=== PATIENT | male | born 1970 | race Caucasian/White ===

== ENCOUNTER 2017-03-20 06:05 | Day surgery (SDC) | payer OTHER ==
[2017-03-20] MEDS ORDERED: ceFAZolin 2 GM/50 ML 2 GM/50 ML BAG IV ONE (06:38)
[2017-03-20] MEDS ORDERED: ACETAMINOPHEN 1,000 MG/100 ML 100 ML IV ONE (06:38)
[2017-03-20] MEDS ORDERED: LACTATED RINGERS 1,000 ML IV ONE ×2 (06:46→10:52)
[2017-03-20] MEDS ORDERED: BACITRACIN 50,000 UNIT VIAL IM ONE (08:29)
[2017-03-20] MEDS ORDERED: EPINEPHrine 1 MG/ML AMP IVP ONE (08:30)
[2017-03-20] MEDS ORDERED: ONDANSETRON 4 MG/2 ML VIAL IVP ONE (08:40)
[2017-03-20] MEDS ORDERED: PROPOFOL 200 MG/20 ML VIAL IVP ONE (08:40)
[2017-03-20] MEDS ORDERED: ceFAZolin 1 GM VIAL IV ONE (08:40)
[2017-03-20] MEDS ORDERED: DEXAMETHASONE 4 MG/ML VIAL IVP ONE (08:40)
[2017-03-20] MEDS ORDERED: MIDAZOLAM 2 MG/2 ML VIAL IVP ONE (08:40)
[2017-03-20] MEDS ORDERED: KETOROLAC 30 MG/ML VIAL IVP ONE (08:40)
[2017-03-20] MEDS ORDERED: fentaNYL 100 MCG/2 ML VIAL IVP ONE (08:40)
[2017-03-20] MEDS ORDERED: ROPIVACAINE 0.5% PF 20 ML AMPULE EP ONE (08:40)
[2017-03-20] MEDS ORDERED: fentaNYL 100 MCG/2 ML VIAL ONE (13:40)
[2017-03-20] MEDS ORDERED: oxyCODONE 5 MG TABLET ONE (13:40)
[2017-03-20] MEDS ORDERED: ONDANSETRON 4 MG/2 ML VIAL ONE (13:55)
--- NOTE | 2017-03-20 14:24 | XRAY Report ---
DATE OF SERVICE: 03/20/2017 EXAM: TWO VIEW RIGHT KNEE. 03/20/2017 CLINICAL INDICATION: Postop. FINDINGS: Frontal and lateral portable views of the right knee demonstrate postoperative changes of a right ACL replacement. Subcutaneous gas is noted. There is no evidence of acute fracture or hardware complica tion. IMPRESSION: EXPECTED POSTOPERATIVE APPEARANCE OF RIGHT ACL REPLACEMENT. TD: 03/20/2017 15:09
[2017-03-20 15:06] VITALS: BP 128/82
--- NOTE | 2017-03-20 19:06 | OPERATIVE REPORT ---
DATE OF SERVICE: 03/20/2017 Physician: Dary Duarte MD DATE OF SURGERY: 03/20/2017 ID#: [id number] PREOPERATIVE DIAGNOSES 1. Right knee anterior cruciate ligament tear. 2. Right knee medial meniscus tear. POSTOPERATIVE DIAGNOSES 1. Right knee anterior cruciate ligament tear. 2. Right knee medial meniscus tear. 3. Right knee lateral meniscus root tear. OPERATIONS PERFORMED 1. Right knee arthroscopic ACL revision reconstruction with allograft bone patellar tendon bone dayana t. 2. Right knee arthroscopic medial meniscus repair. 3. Right knee arthroscopic lateral meniscus root repair. PRIMARY SURGEON: Dary Duarte MD. SCHOOL PHOTOGRAPHER SURGEON: Elier Armstrong MD. ANESTHESIA: Liliana Sanchez CRNA. CIRCULATING NURSES 1. Klaus Sanchez RN. 2. Teresa Martin RN, CNOR. SCRUB TECHS 1. Joanne Medel CST. 2. Rosy Jung. ANESTHESIA: General via LMA. IV FLUIDS: 1500 mL lactated Ringer's. ESTIMATED BLOOD LOSS: 15 mL ANTIBIOTICS: Ancef 2 g IV. TOURNIQUET: None. SPECIMENS: None. IMPLANTS 1. [employer] Fast-Fix 360. 2. Arthrex titanium interference screw, 7 mm by 25 mm, two of these. 3. Arthrex anchor. 4. Bone patellar tendon bone allograft. INDICATIONS: This is a 47-year-old male who initially underwent a right ACL repair at an outside [facility] in early 2011 and then sustained a repeat knee instability following that. He had an arthroscopy done for chr onic right knee pain for medial meniscus tear, at which time his ACL graft was noted to be torn. He went back t o the operating room later for bone grafting of his tibial tunnel with Dr. Farley. He then presented after h ealing of his tibial tunnel for a right knee ACL reconstruction. The risks, benefits, indications, expectations, a nd treatment options were discussed with the patient. The risks of surgery to include, but not limited to infecti on, bleeding, damage to neurovascular structures, need for additional surgery, persistent or worsened pain, stiffne ss, recurrent graft tear, recurrent meniscus tears, iatrogenic chondromalacia, iatrogenic fracture, deep vein throm bosis, pulmonary embolism, loss of limb, and loss of life were discussed with the patient. Additionally, th e risks of allograft to include disease and transmission were discussed with the patient. All questions were an swered, the patient elected to proceed with surgery, and informed consent was obtained. DESCRIPTION OF PROCEDURE: The patient was met in the preoperative holding area on the morning of where we confirmed that we had the correct patient, planned to do the correct procedure, and had the correct e xtremity which was his right lower extremity identified. Prior to the patient receiving medications, the operative extremity was initialed by the surgeon. The patient was then brought back to the operating room in stable conditio n and placed supine on the operating room table. All bony prominences were well padded, and a sequential compress ion device placed on the non-operative leg. General anesthesia was induced, and an LMA was placed. An examination under anesthesia showed the knee to have a 2B Juan Diego and a positive pivot shift. His knee was stable to varus and valgus at both 0 and 30 degrees. He had negative dial test. The right lower extremity was then prepped and draped in the usual sterile fashion. After final drap ing, additional ChloraPrep was utilized on the operative site. Three minutes were allowed to elapse to en able the ChloraPrep to dry. We had a surgical timeout where we confirmed the correct patient, planned to do t he correct procedure, and had the correct extremity which was the right lower extremity identified. We also con firmed that we had the necessary implants present, that all necessary gear was open and confirmed sterile, that the patient received preoperative antibiotics, and that no members of the operative team had any concerns. I began by making a standard anterolateral portal utilizing his prior portal incision by first sharpl y incising the skin with an 11 blade and then introducing a blunt introducer. I then introduced my camera in the pa tellofemoral joint and began my examination. There was some grade 2 chondromalacia of the central aspect of the p atella. The remainder of the patellofemoral joint was without significant lesions. The medial plica ,which had b een resected previously, was demonstrated to be absent. The lateral gutter was without a drive-through sign and w ithout loose bodies. I then continued into the medial compartment of the knee where under direct visualization I made a standard anteromedial portal, again utilizing the previous portal site. After sharply incising the sk in with an 11 blade, a blunt introducer was introduced into the knee and then a probe was placed in the knee for ex amination. The posterior horn medial meniscus tear was identified, and there was still good meniscal tissue ante rior to this. Therefore, a decision was made to repair this. A meniscal ball rasp was introduced, and the tear was rasped. Prior to fixing the meniscus, we continued our examination to the notch, which showed the ACL graft t o be torn. We then continued into the lateral compartment where the root of the lateral meniscus was noted to be to rn. Additionally there is chondromalacia, grade 2, of the lateral tibial plateau as well as some grade 1 chondromalacia of the lateral femoral condyle. We then turned our attention to fixing the medial meniscus first, by inserting a Fast-Fix in a horizo ntal mattress fashion. After placing the Fast-Fix, we then inserted a probe and confirmed that the repair was stab le. We then turned our attention to the lateral meniscus root tear. We utilized a 45-degree suture lasso to pier ce the meniscus approximately 8 mm lateral to the edge of the meniscus after we had debrided the frayed tiss ue. After passing this suture lasso through, we then used utilized this to shuttle a doubled over #2 FiberWire through the meniscus. We then utilized a grasper to bring the tails of the suture through the looped end, such t hat it was a luggage tag suture. We then repeated this again a couple of millimeters lateral to the initial sutur e. We then utilized a #7 FlipCutter to drill a hole from the anteromedial tibia to just under where the root lindsey uld lie. After drilling into the joint from outside in, we then flipped the FlipCutter and retrograde drilled approximately 5 mm. We then flipped the FlipCutter and removed it from the knee. We then brought the 2 luggage ta g sutures that had been passed through the meniscus down through this drill hole. We then while visualizing reduced the meniscal root into place. We then drilled a hole just distal to the drill hole and then passed the sutures in to an anchor and placed the anchor into the tibia, ensuring that the meniscal root was well reduced. We then turned our attention to reconstructing the ACL. We utilized an allograft with 10 mm diameter bone plugs which we narrowed slightly such that they passed into a 9.5 mm drill guide. Therefore, we decided to drill size 10 tibial and femoral tunnels. We first turned our attention to the lateral tunnel and debrided the rem nant of the ACL from the notch and the lateral wall. We placed a [id number] guide and identified where on th e lateral femur the tunnel would come out. We then made an incision in line with the femur through the skin an d then utilized bipolar cautery to dissect through the subcuticular layer. We then split the IT band in dinh e with the fibers and identified the lateral cortex of the femur. We identified the previously placed hardware and ensured that our tunnel was going to be a different tunnel that was coming out on the lateral femur more post erior and a little distal to the initial tunnel. After confirming that we liked our placement, we then utilized the 10 FlipCutter and drilled from outside in to the knee. It should be noted that the end of the tunnel ca me out where the previous tunnel had been placed, though this was appropriately placed. We then flipped the FlipC utter and retrograde drilled all the way out the femur to the lateral cortex. We then turned our attention to the tibial tunnel and placed a tibial tunnel guide into the knee ,and set this at 55 degrees and ensured that our tibial tunnel was far enough away from our meniscal repair tunnel. A fter confirming this, we placed a guide pin and then after confirming we liked the placement of our guide pin, we then drilled over this utilizing a 10 reamer into the joint. We then removed the drill guide. We then pl aced two #2 FiberWires into the bone plugs on each end of the bone patellar tendon bone graft to guide it through the knee. After placing a looped #2 FiberWire through the femoral tunnel and out through the tibial tunnel, we then passed the sutures for the bone graft back up through the tibial tunnel through the knee joint and out the f emur. We then pulled on the sutures while watching intraarticularly and guiding the bone plugs with a probe through the knee joint and up into the lateral tunnel. After the graft came into the lateral tunnel, we confirmed cj t it was appropriately placed, and the bone block was approximately 3 mm into the lateral tunnel from the late ral cortex, as well as approximately 3 mm into the tunnel from the tibial cortex. After confirming that we liked th e placement of this, we placed a nitinol wire into the lateral tunnel adjacent to the bone block and then placed a 7 mm x 25 mm interference screw over the nitinol wire, confirming that the bone block did not move. We then appli ed downward pressure to the sutures in the tibial bone block while we cycled the knee 20 times. We then brought the knee up onto the table and placed a nitinol guidewire into the tibial tunnel and then placed another 7 mm x 2 5 mm screw into the tunnel until the screw was flush with the bone block. We placed the camera inside and confi rmed that none of the bone blocks or screws went into the joint and that the reconstructed ACL was appropriately matheus abhijeet and did not impinge on the roof. We then thoroughly irrigated all wounds. We closed the IT band utilizing 0 Vicryl, the subcuticular layer of the lateral femur incision with 2-0 Vicryl and the skin with a running 3-0 Monocryl. The portals were cl osed. The lateral two portals were closed utilizing a 3-0 Monocryl, and the lateral portal was closed utilizing 3-0 nylon. The tibial incision was closed with 0 Vicryl in the deep tissue, though secondary to scar tissue, the re was no particular specific planes. The skin was then closed with 3-0 nylon in a horizontal mattress fashion . The wounds were then covered with sterile Xeroform, plain gauze, and an abdominal pad. A CHALINO hose was then plac ed over this. The patient was awoken from general anesthesia without complication and taken to the PACU in stable c ondition. All sponge counts and needle counts were correct at the conclusion of the case. POSTOPERATIVE PLAN: The patient will be nonweightbearing on his right lower extremity for 6 weeks. He may bend his knee from 0 to 90 degrees. Then from 6 to 12 weeks he will be weightbearing with his knee extend ed only; when he is nonweightbearing, he may bend his knee from 0 to 90. After 3 months, we will begin to advance his knee range of motion beyond 90 degrees, but no weighted deep knee bending exercises until 4 months postoperative ly. I will see the patient back in 10-14 days for a wound check. TD: 03/20/2017 18:47
== END 2017-03-20 06:06 | disposition home or self-care (01) ==
LOC: SDS 06:05
PROVIDERS: ATTEND Orthopaedic Surgery
PROC: 0MRN47Z Replacement of Right Knee Bursa and Ligament with Autologous Tissue Substitute, Percutaneous Endoscopic Approach (ICD-10-PCS; 2017-03-20)
PROC: 0SQC4ZZ Repair Right Knee Joint, Percutaneous Endoscopic Approach (ICD-10-PCS; principal; 2017-03-20 07:30)
DX: S83.511A Sprain of anterior cruciate ligament of right knee, initial encounter (principal); S83.281A Other tear of lateral meniscus, current injury, right knee, initial encounter; S83.241A Other tear of medial meniscus, current injury, right knee, initial encounter; F17.210 Nicotine dependence, cigarettes, uncomplicated
CPT/HCPCS: 29883; 29888; 73560; A9270; C1713; C1762; J0131; J0690; J7120